=== PATIENT | female | born 2000 | race Caucasian/White ===

== ENCOUNTER 2021-12-22 14:40 | Emergency (ER) | payer MEDICAID, SELFPAY ==
[2021-12-22 14:41] VITALS: BP 142/79; PULSE 102; RESP 18; TEMP 36.2; O2SAT 97; BMI 40.2
[2021-12-22 15:41] VITALS: BP 134/80; PULSE 105; RESP 16; O2SAT 98
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
[2021-12-22 15:58] VITALS: BP 143/88; PULSE 99; RESP 14; O2SAT 99
[2021-12-22] MEDS: LORazepam 1 MG Tablet PO (15:58)
== END 2021-12-22 16:01 | disposition home or self-care (01) ==
PROVIDERS: Emergency Provider Emergency Medicine; Visit Provider Emergency Medicine
DX: Z04.1 Encounter for examination and observation following transport accident (principal); F41.9 Anxiety disorder, unspecified; F32.A Depression, unspecified; V42.6XXA Car passenger injured in collision with two- or three-wheeled motor vehicle in traffic accident, initial encounter; Z79.899 Other long term (current) drug therapy
CPT/HCPCS: 99282